=== PATIENT | male | born 1965 | race Caucasian/White ===

== ENCOUNTER 2019-04-23 08:02 | Emergency (ER) | payer OTHER ==
--- NOTE | 2019-04-23 08:22 | ED ---
Head Injury - HPI Summary HPI Summary: 53-year-old male with a past medical history of atrial fibrillation and hypertension presents to the emergency department today after a fall from 3 feet this morning. The patient was standing on a stool while attempting to hang himself when the noose broke and he fell onto the floor and hit his head. The patient endorses a loss of consciousness for a brief period of time. During the fall he also sustained a laceration superior to the right eye. Patient has ligature bravo from the noose to the inferior portion of the neck but denies any trouble breathing or pain to the neck. Patient was later found by staff sitting comfortably in his room. This patient is on eliquis for persistent atrial fibrillation. He admits to taking his dose last night. Patient endorses having a brain bleed in the past following a traumatic event. He endorses 2 out of 10 pain to the right superior aspect of his face and a minor headache. He has not taken any medication prior to his arrival for alleviation of symptoms. He states with this headache he has blurry vision. He has no other complaints at this time. The patient denies trouble breathing, shortness of breath, chest pain, abdominal pain, lightheadedness, nausea. He is to return to [address] [place] [address] for further evaluation of suicidal ideation. - History Of Current Complaint Chief Complaint: EDHeadInjury Stated Complaint: HEAD LAC Time Seen by Provider: 04/23/19 08:09 Hx Obtained From: Patient Mechanism Of Injury: Fall From Height Of: - 3 feet from stool Onset/Duration: Started Hours Ago - This AM Onset of Pain: Immediate Severity Currently: Mild Severity Initially: Mild Pain Intensity: 3 Pain Scale Used: 0-10 Numeric Location of Head Injury: Temporal - right temporal Character: Dull Associated Signs And Symptoms: LOC Duration Unknown - "breif", Headache, Visual Changes - blurry vision Related History: Similar Episode/Dx as - hx of brain bleed Anticoagulant Therapy: Blood Thinners - elequis - Risk Factors SDH Risk Factor: Male, Recent Trauma, Anticoagulent Use - Allergies/Home Medications Allergies/Adverse Reactions: Allergies Allergy/AdvReac Type Severity Reaction Status Date / Time No Known Allergies Allergy Verified 04/23/19 08:04 Home Medications: Home Medications Apixaban* [Eliquis*] 5 mg PO BID 04/23/19 [History Confirmed 04/23/19] Hydrochlorothiazide TAB* [Hydrodiuril TAB*] 25 mg PO DAILY 04/23/19 [History Confirmed 04/23/19] Lisinopril TAB* [Prinivil TAB*] 40 mg PO DAILY 04/23/19 [History Confirmed 04/23] Metoprolol Tartrate [Lopressor] 50 mg BID 04/23/19 [History Confirmed 04/23/19] Vitamin B Complex CAP* [B Complex CAP*] 1 cap PO DAILY 04/23/19 [History Confirmed 04/23/19] PMH/Surg Hx/FS Hx/Imm Hx Endocrine/Hematology History: Reports: Hx Anticoagulant Therapy Cardiovascular History: Reports: Hx Atrial Fibrillation, Hx Hypertension Neurological History: Reports: Other Neuro Impairments/Disorders - hx of brain bleed - Immunization History Date of Tetanus Vaccine: 02/13/2017 Date of Influenza Vaccine: 03/27/2016 Infectious Disease History: Yes Infectious Disease History: Denies: Traveled Outside the [place] in Last 30 Days - Social History Alcohol Use: None Substance Use Type: Reports: None Smoking Status (MU): Light Every Day Tobacco Smoker Review of Systems Constitutional: Negative Positive: Blurred Vision. Negative: Photophobia Negative: Epistaxis, Dental Pain Cardiovascular: Negative Respiratory: Negative Gastrointestinal: Negative Musculoskeletal: Negative Positive: Bruising - ligature bravo to inferior portion of the neck circumferentially, laceration with ecchymosis superior to the right eye Positive: Headache Psychological: Normal All Other Systems Reviewed And Are Negative: Yes Physical Exam Triage Information Reviewed: Yes Vital Signs On Initial Exam: Initial Vitals Temp Pulse Resp BP Pulse Ox 97.8 F 78 16 146/89 96 04/23/19 08:03 04/23/19 08:03 04/23/19 08:03 04/23/19 08:03 04/23/19 08:03 Vital Signs Reviewed: Yes Appearance: Positive: No Pain Distress, Well-Nourished Skin: Positive: Warm, Skin Color Reflects Adequate Perfusion Head/Face: Positive: Normal Head/Face Inspection Eyes: Positive: Normal, EOMI, YADIRA, Conjunctiva Clear, Other: ENT: Positive: Hearing grossly normal, Pharynx normal, TMs normal - no signs of Hemotympanum Dental: Positive: Other - Dentition poor repair. No evidence of trauma to the dentition or tongue. Neck: Positive: Nontender, Other: - Full range of motion Respiratory/Lung Sounds: Positive: Clear to Auscultation, Breath Sounds Present Cardiovascular: Positive: Normal, RRR, S1, S2 Abdomen Description: Positive: Nontender Neurological: Positive: Alert, Oriented to Person Place, Time, CN Intact II-III , Normal Gait, Finger to Nose, Speech Normal Psychiatric: Positive: Normal AVPU Assessment: Alert Procedures - Sedation Patient Received Moderate/Deep Sedation with Procedure: No - Laceration/Wound Repair 1 Location: head - superior to right eye Description: Irregular - 2 cm in length 1 cm in width, 0.5 cm deep ,flap Anesthesia: Local, 1.0% Length, Depth and Shape: This is a simple laceration that was 2 cm long by 1 cm wide by 0.5 cm deep in the shape of a flap. Betadine Prep?: No - chlorhexidine was used for prep Irrigated w/ Saline (ccs): 300 Laceration/Wound Explored: clean, no foreign body removed Closure: Single Layer - 8 simple interrupted sutures were placed using 6-0 nylon Suture Type: Nylon - none Number of Sutures: 8 Layer Closure?: No Sterile Dressing Applied?: No Diagnostics - Vital Signs Vital Signs Temp Pulse Resp BP Pulse Ox 04/23/19 08:03 97.8 F 78 16 146/89 96 - Laboratory Result Diagrams: 04/23/19 08:44 04/23/19 08:36 Lab Statement: Any lab studies that have been ordered have been reviewed, and results considered in the medical decision making process. Head Injury Course/Dx Course Of Treatment: This patient was evaluated in the emergency department today for head trauma. Patient was seen and evaluated. On presentation to the emergency department he had no focal neurologic deficits other than blurry vision which he attributes to hitting his head. Laboratory studies and diagnostic imaging was obtained to investigate any possible brain bleed or other pathology as well as damage to the carotid arteries due to asphyxiation with a noose. An EKG was ordered due to the patients history of atrial fibrillation. EKG shows NSR with a rate of 80 bpm with Left axis deviation. No CA or QT interval prolongation. No evidence of ischemia or ST elevation. Suggestive of possible left ventricular hypertrophy. Laboratory results returned showing a white blood cell count of 12.1, a hemoglobin level of 13.5, and a hematocrit of 41. The patient had no evidence of hypovolemia from blood loss or symptoms suggesting infection. Coagulation studies returned and were unconcerning. The laceration superior to the right thigh measured 2 cm in length by 1 cm in width by 0.5 cm deep. This laceration was repaired. The indications, risks, and benefits were going to the patient and verbal informed consent was obtained. The laceration was anesthetized using 1% lidocaine without epinephrine. The wound was irrigated with 300 cc of normal saline under pressure. The patient was prepped and draped in usual fashion and then using simple interrupted technique 8 6-0 nylon sutures were placed to approximate the laceration. Patient tolerated the procedure well, minimal blood loss. Hemostasis achieved. CTA of the head and neck and CT of the brain without contrast showed no evidence of carotid or vertebral dissection or intracerebral bleeding. The scans also showed evidence of atherosclerosis within the vessels. Patient continues to have no neurological deficits at the time of discharge. Patient discharged back to [facility]. This patient is to return to [facility] facility for further evaluation of suicidal ideation. - Diagnoses Differential Diagnosis/HQI/PQRI: Cerebral Contusion, Concussion With LOC, Laceration Provider Diagnoses: Laceration Discharge ED - Sign-Out/Discharge Documenting (check all that apply): Patient Departure - Discharge Plan Condition: Improved Disposition: HOME Patient Education Materials: Care For Your Stitches (ED), Laceration (ED) Referrals: Inderjit HOPKINS,Alix Tineo [Primary Care Provider] - Additional Instructions: You were evaluated in the emergency department today for a laceration to your face. Have sutures removed in 5 days. Due to the nature of your injury is very likely that you could develop a concussion. If you began having symptoms of a worsened headache, nausea, sensitivity to light, difficulty concentrating, please be examined by a medical professional. If you symptoms worsen or you have new symptoms please return to the emergency department immediately. - Billing Disposition and Condition Condition: IMPROVED Disposition: Home - Attestation Statements Provider Attestation: pt seen by midlevel provider independently, based on their assessment, it was not necessary to present the case to me but I was available for consultation. I did not form a physician-patient relationship with the patient. The chart however, has been reviewed. am signing this note strictly in an administrative capacity.
[2019-04-23 08:50] LABS: ABS Basophils 0.1 10^3/ul (0-0.2); ABS Lymphocytes 2.2 10^3/ul (1.0-4.8); ABS Monocytes 0.3 10^3/ul (0-0.8); ABS Neutrophils 9.5 10^3/ul (1.5-7.7); Eosinophil % 0.1 %; Hematocrit 41 % (42-52); Hemoglobin 13.5 g/dL (14.0-18.0); Lymphocyte % 18.4 %; Mean Corpuscular HGB Conc 33 g/dL (31-36); Mean Corpuscular Hemoglobin 27 pg (27-31); Mean Corpuscular Volume 83 fL (80-94); Mean Platelet Volume 7.9 fL (7.4-10.4); Nucleated Red Blood Cells % 0.1; Platelet Count 199 10^3/uL (150-450); Red Blood Count 4.94 10^6 /uL (4.18-5.48); Red Cell Distribution Width 14 % (10-15); White Blood Count 12.1 10^3/uL (3.5-10.8)
[2019-04-23 08:58] LABS: Activated Partial Thrombo Time 35.9 seconds (26.0-38.0); INR 1.17 (0.82-1.09)
[2019-04-23 12:35] LABS: EGFR African American 72.6 (>60)
[2019-04-23] MEDS ORDERED: Iodixanol* (CONTRAST) 320 MG/ML 100 ML SDV IV ONE (12:51)
[2019-04-23 13:44] VITALS: BP 126/89
== END 2019-04-23 13:37 | disposition home or self-care (01) ==
LOC: ED 08:02
DX: S01.81XA Laceration without foreign body of other part of head, initial encounter (principal); W17.89XA Other fall from one level to another, initial encounter; T14.91XA Suicide attempt, initial encounter; S10.93XA Contusion of unspecified part of neck, initial encounter; X83.8XXA Intentional self-harm by other specified means, initial encounter; Y93.89 Activity, other specified; Y92.149 Unspecified place in prison as the place of occurrence of the external cause; R51 Headache; H53.8 Other visual disturbances; I48.91 Unspecified atrial fibrillation; Z79.01 Long term (current) use of anticoagulants; I65.23 Occlusion and stenosis of bilateral carotid arteries; I10 Essential (primary) hypertension; F17.200 Nicotine dependence, unspecified, uncomplicated
CPT/HCPCS: 36415; 70496; 70498; 82565; 84520; 85025; 85610; 85730; 93005; 99282; Q9967